=== PATIENT | male | born 1965 | race African-American/Black ===

== ENCOUNTER 2022-03-23 14:12 | Emergency (ER) | payer MEDICARE, MEDICAID ==
[~2022-03-23] VITALS: Ht 182.9 cm; Wt 86.5 kg
[2022-03-23] MEDS ORDERED: flomax (14:23)
[2022-03-23] MEDS ORDERED: SODIUM CHLORIDE 0.9% 1000ML BAG (SEPSIS BOLUS) IV ONE (14:45)
[2022-03-23 15:39] LABS: BASOPHILS % 0.2 % (0.0-2.0); EOSINOPHILS % 0.5 % (0.0-5.0); HEMATOCRIT. 41.3 % (42.0-52.0); HEMOGLOBIN. 13.6 g/dL (14.0-18.0); LYMPHOCYTES % 27.3 % (20.0-50.0); MEAN CORPUSCULAR HEMOGLOBIN 30.2 pg (28.0-32.0); MEAN CORPUSCULAR VOLUME 91.7 fL (80.0-94.0); MEAN PLATELET VOLUME 6.8 fl (7.4-10.4); MONOCYTES % 8.6 % (2.0-8.0); NEUTROPHILS % 63.4 % (40.0-76.0); PLATELET 310 x1000/uL (130-400); RED BLOOD CELL COUNT 4.51 mill/uL (4.7-6.1); RED CELL DISTRIBUTION WIDTH 14.8 % (11.6-14.6)
[2022-03-23 15:50] LABS: CHLORIDE 114 mEq/L (98-107); PARTIAL THROMBOPLASTIN TIME 25.1 sec (23.4-31.0); PROTHROMBIN TIME 10.3 sec (9.6-11.0)
[2022-03-23 16:05] LABS: CLARITY URINE CLEAR (CLEAR); COLOR URINE YELLOW (YELLOW); KETONES URINE NEGATIVE (NEGATIVE); LEUKOCYTE ESTERASE URINE NEGATIVE (NEGATIVE); NITRITE URINE NEGATIVE (NEGATIVE); OCCULT BLOOD URINE NEGATIVE (NEGATIVE); PH URINE 6.5 (4.5-8.0); PROTEIN URINE NEGATIVE (NEGATIVE); UROBILINOGEN URINE 0.2 E.U./dL (0.2-1.0)
[2022-03-23] MEDS ORDERED: CEFTRIAXONE 1 G PREMIX 50 ML IV ONE (16:15)
[2022-03-23] MEDS ORDERED: AZITHROMYCIN 500MG/250ML 250 ML IV ONE (16:15)
[2022-03-23] MEDS ORDERED: IOHEXOL-350 100 ML BOTTLE ONE ×2 (16:33→22:59)
[2022-03-23] MEDS ORDERED: ACETAMINOPHEN 325MG TABLET PO PRN ×2 (18:00)
[2022-03-23] MEDS ORDERED: MAGNESIUM/ALUMINUM HYDROXIDE/SIMETHICONE 30ML UDC PO PRN (18:00)
[2022-03-23] MEDS ORDERED: DOCUSATE SODIUM 100MG CAPSULE PO PRN (18:00)
[2022-03-23] MEDS ORDERED: SODIUM CHLORIDE 0.9% 1,000 ML IV SCH (18:00)
[2022-03-23] MEDS ORDERED: GUAIFENESIN 200MG/10ML SUGAR FREE UDC PO PRN (18:00)
[2022-03-23] MEDS ORDERED: KETOROLAC 15MG/ML VIAL IV PRN (18:00)
[2022-03-23] MEDS ORDERED: ZOLPIDEM TARTRATE 5MG TABLET PO PRN (18:00)
[2022-03-23] MEDS ORDERED: NITROGLYCERIN 0.4MG TABLET SL SL PRN (18:00)
[2022-03-23] MEDS ORDERED: SODIUM CHLORIDE 0.9% 1,000 ML IV ONE (18:00)
[2022-03-23] MEDS ORDERED: CLONIDINE 0.1MG TABLET PO PRN (18:00)
[2022-03-23] MEDS ORDERED: IPRATROPIUM/ALBUTEROL 0.5-3(2.5)MG/3ML NEB NEB PRN (18:00)
[2022-03-23] MEDS ORDERED: ONDANSETRON HCL 4MG/2ML INJ IV PRN (18:00)
[2022-03-23] MEDS ORDERED: ENOXAPARIN 40MG/0.4ML SYR SUBCUT SCH (18:45)
[2022-03-23] MEDS ORDERED: IPRATROPIUM BROMIDE (0.02%) 0.5MG/2.5ML NEB HHN PRN (18:45)
[2022-03-23] MEDS ORDERED: LEVOFLOXACIN 500MG PREMIX 100 ML IV SCH (18:45)
[2022-03-23] MEDS ORDERED: ALBUTEROL (0.083%) 2.5MG/3ML NEB HHN PRN (18:45)
[2022-03-23 19:19] LABS: ETHANOL BLOOD < 10 mg/dL; HDL CHOLESTEROL 40 mg/dL (40-59); LDL CHOLESTEROL 110 mg/dL (5-100); T4 FREE 0.98 ng/dL (0.76-1.46); TOTAL IRON BINDING CAPACITY 297 ug/dL (250-450)
[2022-03-23 19:40] LABS: FOLIC ACID (FOLATE) SERUM 7.9 ng/mL (>5.38)
[2022-03-23 21:00] VITALS: BP 110/85
[2022-03-23] MEDS ORDERED: ASCORBIC ACID 500 MG TABLET PO SCH (21:00)
[2022-03-23] MEDS ORDERED: FAMOTIDINE 20MG TABLET PO SCH (21:00)
[2022-03-24] MEDS ORDERED: ASPIRIN 325MG EC TABLET PO SCH (09:00)
[2022-03-24] MEDS ORDERED: ZINC SULFATE 220 MG ( 50 ) CAPSULE PO SCH (09:00)
== END 2022-03-23 21:44 | disposition left against medical advice (07) ==
LOC: ER 14:12 → EDBEDREQTM 17:46 → EDBEDREQ 17:46 → SUPCPDRO 18:15 → ER 21:44
DX: A41.9 Sepsis, unspecified organism (principal); R65.20 Severe sepsis without septic shock; I10 Essential (primary) hypertension; N40.0 Benign prostatic hyperplasia without lower urinary tract symptoms; R94.31 Abnormal electrocardiogram [ECG] [EKG]
CPT/HCPCS: 36415; 71045; 71275; 74174; 80053; 80061; 80320; 81003; 82607; 82746; 83036; 83540; 83550; 83605; 83690; 83880; 84145; 84439; 84443; 84484; 85025; 85610; 85730; 86850; 86900; 86901; 87040; 87086; 93005; 96365; 96366; 96368; 99291; J0456; J0696; J1650; J1956; J7030; Q9967; G0480